=== PATIENT | male | born 1990 ===

== ENCOUNTER 2025-07-18 06:00 | Day surgery (SDC) | payer OTHER ==
[2025-07-11 10:45] VITALS: BP 134/81
[~2025-07-18] VITALS: Ht 185.4 cm; Wt 102.1 kg
[2025-07-18] MEDS ORDERED: LIDOCAINE HCL 1%/EPINEPHRINE 20ML VIAL IJ ONE (08:30)
[2025-07-18] MEDS ORDERED: CEFAZOLIN SODIUM 1,000 MG VIAL IV ONE (08:30)
[2025-07-18] MEDS ORDERED: KETOROLAC TROMETHAMINE 30 MG VIAL IV ONE (08:30)
[2025-07-18] MEDS ORDERED: BUPIVACAINE HCL 30 ML VIAL IJ ONE (08:30)
[2025-07-18] MEDS ORDERED: TYLENOL ARTHRI650 MG PO (09:36)
[2025-07-18] MEDS ORDERED: MIRALAX17 GM PO (09:36)
[2025-07-18] MEDS ORDERED: KETO10TA2 PO (09:36)
[2025-07-18] MEDS ORDERED: TRAMADOL HCL50 MG PO (09:36)
== END 2025-07-18 14:30 | disposition home or self-care (01) ==
LOC: CIR.AMB 06:00
PROVIDERS: ATTEND Surgery
DX: K40.90 Unilateral inguinal hernia, without obstruction or gangrene, not specified as recurrent (principal); K42.0 Umbilical hernia with obstruction, without gangrene
CPT/HCPCS: 49650; 49592; C1781